=== PATIENT | female | born 1945 | race Caucasian/White ===

== ENCOUNTER 2017-04-14 13:27 | Emergency (ER) | payer SELFPAY ==
[2017-04-14 13:52] VITALS: TEMP 99.1; BMI 25.6
--- NOTE | 2017-04-14 14:32 | PDOC ---
History of Present Illness - General Chief Complaint: Cold Symptoms Stated Complaint: COLD SYMPTOMS Time Seen by Provider: 04/14/17 14:28 History Source: Patient Exam Limitations: No Limitations - History of Present Illness Initial Comments: CHIEF COMPLAINT: 72 y/o afebrile female with PMH HTN and DM c/o fever, body aches, cough and runny nose x 2 days. HISTORY OF PRESENT ILLNESS: The patient admits she has a productive cough with yellow sputum. She denies earache, sore throat, n/v/d, CP, SOB, abd pain, back pain, hematuria, dysuria. Vital signs on arrival are notable for O2 sat 95% on RA. REVIEW OF SYSTEMS: GENERAL/CONSTITUTIONAL: Tactile fever. + chills. + body aches. HEAD, EYES, EARS, NOSE AND THROAT: No change in vision. No ear pain or discharge. No sore throat. CARDIOVASCULAR: No chest pain or shortness of breath. RESPIRATORY: +productive cough of yellow sputum. No wheezing or hemoptysis. GASTROINTESTINAL: No abd pain, nausea, vomiting, diarrhea. GENITOURINARY: No dysuria, frequency, or change in urination. MUSCULOSKELETAL: No joint or muscle swelling or pain. No neck or back pain. SKIN: No rash or easy bruising. NEUROLOGIC: No headache, vertigo, loss of consciousness, or loss of sensation. PHYSICAL EXAM: GENERAL: The patient is awake, alert, and fully oriented, in no acute distress. She is well appearing and pleasant. No cough while in ER. HEAD: Normal with no signs of trauma. ENT: Pupils equal, round and reactive to light, extraocular movements intact, sclera anicteric, conjunctiva clear. Neck supple. LUNGS: Clear to auscultation bilaterally. Normal excursion. No respiratory distress or use of accessory muscles. CV: RRR, S1/S2, no MRG. Cap refill < 2 sec. ABDOMEN: Soft, non-distended, non-tender even to deep palpation, no hepatomegaly or splenomegaly, no masses. EXTREMITIES: Normal range of motion, no edema. NEUROLOGICAL: Normal speech, normal gait. CN II-XII grossly intact. SKIN: Warm, dry, normal turgor, no rashes or lesions noted. Past History - Past Medical History Allergies/Adverse Reactions: Allergies Allergy/AdvReac Type Severity Reaction Status Date / Time No Known Allergies Allergy Verified 04/14/17 13:46 Home Medications: Ambulatory Orders Glipizide [Glipizide ER] 10 mg PO DAILY 12/18/11 Lisinopril [Prinivil] 20 mg PO DAILY 12/18/11 Metformin HCl [Glucophage] 1,000 mg PO BID 12/18/11 Atorvastatin Ca [Lipitor] 20 mg PO HS 04/14/17 Azithromycin [Zithromax 250mg Tablets -] 250 mg PO UTDICT #6 tab 04/14/17 Sitagliptin Phosphate [Januvia] 100 mg PO DAILY 04/14/17 COPD: No DVT: No Diabetes: Yes (NIDM) - Immunization History Immunization Up to Date: No - Suicide/Smoking/Psychosocial Hx Smoking Status: No Smoking History: Never smoked Have you smoked in the past 12 months: No Number of Cigarettes Smoked Daily: 0 If you are a former smoker, when did you quit?: 30YRS Information on smoking cessation initiated: No Hx Alcohol Use: No Drug/Substance Use Hx: No Substance Use Type: None *Physical Exam - Vital Signs Last Vital Signs Temp Pulse Resp BP Pulse Ox 99.1 F 87 16 159/56 95 04/14/17 13:46 04/14/17 13:46 04/14/17 13:46 04/14/17 13:46 04/14/17 13:46 Medical Decision Making - Medical Decision Making A/P: 72 y/o female with flu like symptoms. She did not receive the flu shot this year. O2 sat at 95% on RA. Plan is as follows: 1. Influenza 2. CXR Influenza A&B - negative CXR IMPRESSION: (wet read). No acute findings Will discharge with zpack. Suggested plenty of fluids and rest and tylenol for fever. instructed her to f/u with her PCP tomorrow and return to the ER with any worsening or concerning symptoms. The patient verbalizes understanding of all instructions, has no further questions and is awaiting discharge. *DC/Admit/Observation/Transfer Diagnosis at time of Disposition: Cough Upper respiratory infection Qualifiers: URI type: unspecified URI Qualified Code(s): J06.9 - Acute upper respiratory infection, unspecified - Discharge Dispostion Disposition: HOME Condition at time of disposition: Good - Prescriptions Prescriptions: Azithromycin [Zithromax 250mg Tablets -] 250 mg PO UTDICT #6 tab - Referrals Referrals: Yovani Meyer MD [Primary Care Provider] - Call tomorrow - Patient Instructions Printed Discharge Instructions: DI for Cough -- Adult, DI for Viral Upper Respiratory Infection -- Adult Additional Instructions: Discharge Instructions: -Your flu test was negative -A prescription was sent to your pharmacy; please take as prescribed -Take Tylenol or motrin for fever -Drink plenty of fluids -Follow up with your doctor tomorrow -Return to the ER with any worsening or concerning symptoms - Post Discharge Activity
[2017-04-14 16:40] VITALS: BP 163/75; PULSE 83
== END 2017-04-14 16:40 | disposition home or self-care (01) ==
LOC: JER 13:27
DX: J06.9 Acute upper respiratory infection, unspecified (principal); I10 Essential (primary) hypertension; E11.9 Type 2 diabetes mellitus without complications; Z79.84 Long term (current) use of oral hypoglycemic drugs
CPT/HCPCS: 71045-TC; 87804; 99282-25

== ENCOUNTER 2019-05-20 18:58 | Emergency (ER) | payer SELFPAY ==
[2019-05-20 19:19] VITALS: BP 173/64; PULSE 70; BMI 23.8
[2019-05-20] MEDS ORDERED: SODIUM CHLORIDE 1,000 ML IV STA (20:02)
[2019-05-20] MEDS ORDERED: ACETAMINOPHEN 1000 MG/100 ML VIAL (NON FORMULARY) IVPB ONE (20:02)
--- NOTE | 2019-05-20 20:09 | PDOC ---
History of Present Illness - General Chief Complaint: Weakness Stated Complaint: GENERALIZED WEAKNESS Time Seen by Provider: 05/20/19 19:43 - History of Present Illness Initial Comments: 05/20/19 20:04 74 yo F with h/o HTN, HLD, DM who p/w myalgias, tactile fever, and dry non productive cough. Patient reports 3 days of dry non-productive cough with gradual resolution. Also endorses experiencing 3 days of diffuse body aches, fa tigue, and intermittent SOB. Yesterday evening (05/19/19) patient reports experiencing, episode of diffuse abdominal pain/pressure, chest, and back "aching," while at rest. Normal PO intake, and appeitie. Symptoms improved with OTC "mucinex," and antipyretics. Patient denies NEVES, vision change, palpitations, wheezing, orthopena, PND, leg swelling/pain, N/V, urinary complaints, hematuria, BPR, diarrhea, constipation, lightheadedness, sensory changes. PMHx: as noted above ROS: as noted SHx: Denies Etoh, IVDA, tobacco use. Returned from DR peterson 1 month ago. Allergies: NKDA Past History - Past Medical History Allergies/Adverse Reactions: Allergies Allergy/AdvReac Type Severity Reaction Status Date / Time No Known Allergies Allergy Verified 05/20/19 19:19 Home Medications: Ambulatory Orders Glipizide [Glipizide ER] 10 mg PO DAILY 12/18/11 Lisinopril [Prinivil] 20 mg PO DAILY 12/18/11 metFORMIN HCL [Glucophage] 1,000 mg PO BID 12/18/11 Atorvastatin Ca [Lipitor] 20 mg PO HS 04/14/17 Azithromycin [Zithromax 250mg Tablets -] 250 mg PO UTDICT #6 tab 04/14/17 Sitagliptin Phosphate [Januvia] 100 mg PO DAILY 04/14/17 COPD: No DVT: No Diabetes: Yes (NIDDM) - Immunization History Immunization Up to Date: No - Psycho Social/Smoking Cessation Hx Smoking Status: No Smoking History: Never smoked Have you smoked in the past 12 months: No Number of Cigarettes Smoked Daily: 0 If you are a former smoker, when did you quit?: 30YRS Hx Alcohol Use: No Drug/Substance Use Hx: No Substance Use Type: None Review of Systems - Review of Systems Comments:: 05/20/19 20:10 GENERAL/CONSTITUTIONAL: +fevers and weakness. HEAD, EYES, EARS, NOSE AND THROAT: No change in vision. No ear pain or di scharge. No sore throat. CARDIOVASCULAR:+chest pain and shortness of breath RESPIRATORY: +cough. No wheezing, or hemoptysis. GASTROINTESTINAL: No nausea, vomiting, diarrhea or constipation. GENITOURINARY: No dysuria, frequency, or change in urination. MUSCULOSKELETAL: + muscle pain. No joint pain. No neck pain. SKIN: No rash NEUROLOGIC: No headache, vertigo, loss of consciousness, or change in str ength/sensation. ENDOCRINE: No increased thirst. No abnormal weight change HEMATOLOGIC/LYMPHATIC: No anemia, easy bleeding, or history of blood clots. ALLERGIC/IMMUNOLOGIC: No hives or skin allergy. *Physical Exam - Vital Signs Last Vital Signs Temp Pulse Resp BP Pulse Ox 97.4 F L 70 18 173/64 H 98 05/20/19 19:16 05/20/19 19:16 05/20/19 19:16 05/20/19 19:16 05/20/19 19:16 - Physical Exam 05/20/19 20:11 GENERAL: Awake, alert, and fully oriented, in no acute distress HEAD: No signs of trauma, normocephalic, atraumatic EYES: PERRLA, EOMI, sclera anicteric, conjunctiva clear ENT: Auricles normal inspection, hearing grossly normal, nares patent, oropharynx clear without exudates. Moist mucosa NECK: Normal ROM, supple, no lymphadenopathy, JVD, or masses LUNGS: No distress, speaks full sentences, clear to auscultation bilaterally HEART: Regular rate and rhythm, normal S1 and S2, no murmurs, rubs or gallops, peripheral pulses normal and equal bilaterally. ABDOMEN: Soft, nontender, normoactive bowel sounds. No guarding, no rebound. No masses EXTREMITIES : Normal inspection, Normal range of motion, no edema. No clubbing or cyanosis NEUROLOGICAL: Cranial nerves II through XII grossly intact. Normal speech, normal gait, no focal sensorimotor deficits SKIN: Warm, Dry, normal turgor, no rashes or lesions noted ED Treatment Course - LABORATORY CBC & Chemistry Diagram: 05/20/19 20:30 05/20/19 20:30 - RADIOLOGY Radiology Studies Ordered: Category Date Time Status CHEST PA & LAT [RAD] Stat Radiology 05/20/19 20:02 Ordered 05/20/19 22:51 Medical Decision Making - Medical Decision Making 05/20/19 20:09 74 yo F with h/o HTN, HLD, DM who p/w 3 days of myalgias, intermittent SOB, tactile fever, and dry non productive cough. BP 173/634, vitals otherwise wnl, AF, A&Ox3. Physical exam unremarkable. Low risk PE per [facility]. Sx. likely 2/2 viral prodrome. Will provide analgesic control, and reassess. DDx: viral URI, flu, PNA Ed Course: NS 1 L, Tylenol 1000 mg 05/20/19 21:48 Laboratory Tests 05/20/19 05/20/19 20:30 20:30 WBC 7.5 Hgb 12.6 Hct 37.5 Plt Count 342 Sodium 135 L BUN 21.6 H Creatinine 1.1 Troponin I < 0.02 05/20/19 21:49 CXR: Unremarkable 05/20/19 22:25 Flu B + 05/20/19 22:25 EKG: HR 56, NSR with absent JEANNINE, STD. Nml interval duration and axis. Nml R wave progression. Absent Q waves. Patient stable for d/c with return precautions. Advised to f/u PMD. Discharge - Discharge Information Problems reviewed: Yes Clinical Impression/Diagnosis: Upper respiratory infection Qualifiers: URI type: unspecified viral URI Qualified Code(s): J06.9 - Acute upper respiratory infection, unspecified Condition: Stable Disposition: HOME - Admission No - Follow up/Referral Referrals: Yovani Meyer MD [Primary Care Provider] - Scar Romo MD [Staff Physician] - - Patient Discharge Instructions Patient Printed Discharge Instructions: DI for Cough -- Adult Additional Instructions: Please return to the emergency department with any new or worsening symptoms or concerns. Please follow up with your primary care physician within 72 hours. You can take 600 mg Ibuprofen and/or Acetaminophen 650 mg every 6-8 hours as needed for pain. - Post Discharge Activity
[2019-05-20] MEDS ORDERED: ACETAMINOPHEN INJECTION 100 ML IVPB ONE (20:35)
[2019-05-20 21:20] LABS: BASO % 1.2 % (0-2.0); EOS % 2.8 % (0-4.5); HEMATOCRIT 37.5 % (32.4-45.2); HEMOGLOBIN 12.6 GM/dL (10.7-15.3); LYMPH % 38.9 % (8-40); MCH 29.9 pg (25.7-33.7); MCHC 33.5 g/dl (32.0-36.0); MEAN CELL VOLUME 89.5 fl (80-96); MEAN PLT VOLUME 9.4 fl (7.5-11.1); MONO % 5.8 % (3.8-10.2); NEUT % 51.3 % (42.8-82.8); PLATELET COUNT 342 K/MM3 (134-434); RBC 4.19 M/mm3 (3.60-5.2); RDW 13.1 % (11.6-15.6); WHITE BLOOD COUNT 7.5 K/mm3 (4.0-10.0)
[2019-05-20 21:31] LABS: ALBUMIN 3.1 g/dl (3.4-5.0); ALK PHOS 112 U/L (45-117); ANION GAP 6 MMOL/L (8-16); BILIRUBIN,TOTAL 0.3 mg/dL (0.2-1); BLOOD UREA NITROGEN 21.6 mg/dL (7-18); CALCIUM 9.2 mg/dL (8.5-10.1); CHLORIDE 102 mmol/L (98-107); CO2 28 mmol/L (21-32); CREATININE 1.1 mg/dL (0.55-1.3); GLUCOSE,RANDOM 313 mg/dL (74-106); POTASSIUM 5.1 mmol/L (3.5-5.1); SGOT/AST 11 U/L (15-37); SGPT/ALT 20 U/L (13-61); SODIUM 135 mmol/L (136-145)
--- NOTE | 2019-05-20 21:35 | PDOC ---
Attending Attestation - Resident Resident Name: Francisco Javier Sandoval - ED Attending Attestation I have performed the following: I have examined & evaluated the patient, The case was reviewed & discussed with the resident, I agree w/resident's findings & plan - HPI HPI: 05/20/19 21:30 Pt comes with cough 3 days ago. Yesterday she had abd pain; now pain is better. No swelling of the abd. No diarrhea and no constipation. Pt had turkey to eat and green bananas; nothing more. Pt complains of left ear clogged feeling. Pt has no sore throat She has no fever She felst slightly warm yesterday Pt didn't get her flu shot; she came to [facility] from 1 mos ago. - Physicial Exam PE: 05/20/19 21:33 HEENT +early cataracts bilat bilat cerumen impaction worse on the left side. Pt has no pharyngeal erythema or edema She has moist mucus membranes. Pt has [id number] lungs CTA B abd normal BS; no flank pain and no rebound and no guarding Neuro intact reflexes intact Pt appears well Smiling and feels well. - Medical Decision Making 05/20/19 22:52 Pt is flu B positive. She is out of the tamiflu window. She will follow with ENT for her ear.
[2019-05-20 22:01] VITALS: TEMP 97.6
--- NOTE | 2019-05-21 10:29 | EKG ---
Test Reason : Blood Pressure : / mmHG Vent. Rate : 056 BPM Atrial Rate : 056 BPM P-R Int : 156 ms QRS Dur : 096 ms QT Int : 434 ms P-R-T Axes : 068 028 037 degrees QTc Int : 418 ms SINUS BRADYCARDIA OTHERWISE NORMAL ECG NO PREVIOUS ECGS AVAILABLE Confirmed by Mulugeta Germain MD ([id number]) on 05/21/2019 10:28:31 AM Referred By: Confirmed By:Mulugeta Germain MD
== END 2019-05-20 22:46 | disposition home or self-care (01) ==
LOC: JER 18:58
PROC: 3E033NZ Introduction of Analgesics, Hypnotics, Sedatives into Peripheral Vein, Percutaneous Approach (ICD-10-PCS; principal; 2019-05-20)
DX: J06.9 Acute upper respiratory infection, unspecified (principal); I10 Essential (primary) hypertension; E78.5 Hyperlipidemia, unspecified; E11.9 Type 2 diabetes mellitus without complications
CPT/HCPCS: 36415; 71046-TC-FY; 80053; 82550; 84484; 85025; 87804; 93005; 93010; 99285-25; J0131; J7030